=== PATIENT | female | born 1990 | race Caucasian/White ===

== ENCOUNTER 2017-07-22 22:00 | Emergency (ER) | payer MEDICAID ==
[2017-07-22] MEDS: KETOROLAC 30 MG INJ IM (22:49)
[2017-07-22] MEDS: DIAZEPAM 5 MG TAB PO (22:49)
== END 2017-07-22 23:35 | disposition home or self-care (01) ==
LOC: FTE 22:00
DX: R00.2 Palpitations (principal)
CPT/HCPCS: 81025; 93005; 96372; 99284-25